=== PATIENT | male | born 1970 | race Caucasian/White ===

== ENCOUNTER 2024-08-16 14:46 | Emergency (ER) | payer SELFPAY ==
[~2024-08-16] VITALS: Ht 185.4 cm; Wt 85.0 kg
[2024-08-16 14:52] VITALS: O2SAT 99
[2024-08-16] MEDS: SODIUM CHLORIDE 0.9% 1,000 ML IV ONE (15:15)
[2024-08-16 15:57] LABS: DIFFERENTIAL COMMENT 0; EOSINOPHILS % 1.4 % (0.0-5.0); HEMOGLOBIN. 13.4 g/dL (14.0-18.0); LYMPHOCYTES % 33.2 % (20.0-50.0); MEAN CORPUSCULAR HEMOGLOBIN 33.1 pg (28.0-32.0); MEAN CORPUSCULAR HGB CONC 32.7 g/dL (31.0-37.0); MEAN CORPUSCULAR VOLUME 101.3 fL (80.0-94.0); MEAN PLATELET VOLUME 6.8 fl (7.4-10.4); MONOCYTES % 13.2 % (2.0-8.0); NEUTROPHILS % 51.2 % (40.0-76.0); PLATELET 418 x1000/uL (130-400); RED BLOOD CELL COUNT 4.05 mill/uL (4.7-6.1); RED CELL DISTRIBUTION WIDTH 14.2 % (11.6-14.6); WHITE BLOOD COUNT 6.8 x1000/uL (4.5-11.0)
[2024-08-16 16:01] LABS: CHLORIDE 101 mEq/L (98-107); POTASSIUM 4.4 mEq/L (3.5-5.1); SODIUM 134 mEq/L (136-145)
[2024-08-16 16:02] VITALS: TEMP 36.50292
[2024-08-16 16:02] LABS: CALCIUM 9.5 mg/dL (8.7-10.4); CARBON DIOXIDE 24 mEq/L (21-32)
[2024-08-16 16:07] LABS: CREATININE 0.8 mg/dL (0.6-1.3); GLUCOSE 110 mg/dL (70-105); PARTIAL THROMBOPLASTIN TIME 24.3 sec (23.4-31.0); PROTHROMBIN TIME 11.1 sec (9.6-11.0); UREA NITROGEN BLOOD 6 mg/dL (9-23)
[2024-08-16 16:09] LABS: ACETAMINOPHEN < 2 ug/mL (10-30); ALANINE AMINOTRANSFERASE 168 IU/L (10-49); ALBUMIN 4.6 g/dL (3.2-4.8); ASPARTATE AMINOTRANSFERASE 115 IU/L (<34); BILIRUBIN TOTAL 0.5 mg/dL (0.1-1.0); PROTEIN TOTAL 7.5 g/dL (6.0-8.3)
[2024-08-16 16:19] LABS: ETHANOL BLOOD 342 mg/dL (<10)
[2024-08-16 16:35] LABS: TROPONIN I HIGH SENSITIVITY < 4 ng/L (3.0-53)
[2024-08-16] MEDS ORDERED: IBUP-2028 MT (17:44)
[2024-08-17 01:51] VITALS: BP 124/62; PULSE 88; RESP 20; O2SAT 98
== END 2024-08-17 01:52 | disposition home or self-care (01) ==
LOC: ER 14:55
DX: S42.001A Fracture of unspecified part of right clavicle, initial encounter for closed fracture (principal); R41.82 Altered mental status, unspecified; F10.129 Alcohol abuse with intoxication, unspecified; R53.83 Other fatigue; W18.39XA Other fall on same level, initial encounter; Y93.89 Activity, other specified; Y92.89 Other specified places as the place of occurrence of the external cause; Y99.8 Other external cause status; Y90.8 Blood alcohol level of 240 mg/100 ml or more
CPT/HCPCS: 80053; 80307; 80329; 80320; 85025; 85610; 85730; 84484; 36415; 71045; 70450; 93005; 99285; J7030; Z7610; G0480